=== PATIENT | female | born 1935 | race Asian ===

== ENCOUNTER 2018-05-17 14:04 | Inpatient (IN) | payer OTHER, MEDICAID ==
[~2018-05-17] VITALS: Ht 152.4 cm; Wt 55.8 kg
[2018-05-17 14:04] VITALS: BP_SYST 119
[2018-05-17] MEDS ORDERED: NACL 0.9% 1,000 ML IV ONE (15:15)
[2018-05-17 15:44] LABS: BASOPHILS # (AUTO) 0.1 K/uL (0.0-0.2); BASOPHILS % (AUTO) 0.6 % (0.0-2.0); EOSINOPHILS # (AUTO) 0.2 K/uL (0.0-0.4); EOSINOPHILS % (AUTO) 1.3 % (0.0-4.0); HEMATOCRIT 39.9 % (36-48); HEMOGLOBIN 13.6 g/dL (12.0-16.0); LYMPHOCYTES # (AUTO) 1.6 K/uL (1.0-5.5); LYMPHOCYTES % (AUTO) 11.4 % (20.5-51.5); MEAN CORPUSCULAR HEMOGLOBIN 32 pg (27-31); MEAN CORPUSCULAR HGB CONC 34 % (32-36); MEAN CORPUSCULAR VOLUME 94 fL (79.0-98.0); MONOCYTES # (AUTO) 0.6 K/uL (0.0-1.0); MONOCYTES % (AUTO) 4.5 % (1.7-9.3); NEUTROPHILS # (AUTO) 11.6 K/uL (1.8-7.7); NEUTROPHILS % (AUTO) 82.2 % (40.0-70.0); PLATELET COUNT (AUTO) 297 K/uL (130-430); RED BLOOD CELL COUNT(AUTO) 4.26 MIL/uL (4.2-6.2); RED CELL DISTRIBUTION WIDTH 12.8 % (9.0-15.0); WHITE BLOOD COUNT (AUTO) 14.1 K/uL (4.8-10.8)
[2018-05-17] MEDS ORDERED: LEVOFLOXACIN 500 MG/D5W 100 ML IV ONE (15:45)
[2018-05-17 15:48] LABS: ANION GAP 9 (5-15); CALCIUM 8.6 mg/dL (8.4-11.0); CHLORIDE 99 mmol/L (98-107); CREATININE 1.18 mg/dL (0.55-1.30); GLUCOSE 107 mg/dL (70-99); POTASSIUM 4.1 mmol/L (3.5-5.1); SODIUM SERUM 134 mmol/L (136-145); UREA NITROGEN, BLOOD 31 mg/dL (8-21)
[2018-05-17 15:53] LABS: ALANINE AMINOTRANSFERASE 47 U/L (12-78); ALBUMIN 3.4 g/dL (3.4-4.8); ASPARTATE AMINOTRANSFERASE 28 U/L (10-37); LIPASE 142 U/L (73-393); TOTAL BILIRUBIN 0.7 mg/dL (0.0-1.0)
[2018-05-17] MEDS ORDERED: LIPA1CAP23 PO (17:28)
[2018-05-17] MEDS ORDERED: NOR10 PO (17:28)
[2018-05-17] MEDS ORDERED: LIP10 PO (17:28)
[2018-05-17] MEDS ORDERED: MELO15TA13 PO (17:28)
[2018-05-17 17:45] LABS: BILIRUBIN,URINE NEGATIVE (NEGATIVE); CLARITY/URINE CLEAR (CLEAR); COLOR,URINE YELLOW (YELLOW); GLUCOSE,URINE NEGATIVE (NEGATIVE); KETONES,URINE NEGATIVE (NEGATIVE); LEUKOCYTE ESTERASE ,URINE NEGATIVE (NEGATIVE); NITRITE, URINE NEGATIVE (NEGATIVE); PH,URINE 5.5 (5.0-8.0); PROTEIN URINE NEGATIVE (NEGATIVE); UROBILINOGEN,URINE 0.2 (0.2-1.0)
[2018-05-17 17:47] LABS: BLOOD, URINE TRACE (NEGATIVE)
[2018-05-17 17:51] LABS: BACTERIA,URINE FEW /HPF (None Seen)
[2018-05-17 19:21] VITALS: BP_SYST 105
[2018-05-17 20:40] VITALS: BP_SYST 106
[2018-05-17] MEDS ORDERED: KCL 20 mEq in D5NS 1000 mL 1,000 ML IV SCH (21:15)
[2018-05-17] MEDS ORDERED: MORPHINE 4 MG/ML INJ. SYRINGE ONE (21:17)
[2018-05-17] MEDS ORDERED: ONDANSETRON HCL 4 MG/2 ML VIAL ONE (21:18)
[2018-05-17] MEDS: MORPHINE 4 MG/ML INJ. SYRINGE IVP PRN ×2 (21:27→21:35)
[2018-05-17] MEDS: ONDANSETRON HCL 4 MG/2 ML VIAL IVP PRN ×2 (21:27→21:34)
[2018-05-17] MEDS ORDERED: PIPERACILLIN/TAZOBACTAM 3.375 GM/VIAL (ZOSYN) IV ONE (21:44)
[2018-05-17] MEDS ORDERED: metroNIDAZOLE 500 mg/NS 200 ML IV ONE (21:44)
[2018-05-17] MEDS ORDERED: PIPERACILLIN/TAZO 3.375/DEX-IS 50 ML IV SCH (22:00)
[2018-05-17] MEDS ORDERED: PANTOPRAZOLE SODIUM 40 MG/VIAL (PROTONIX) IVP SCH (22:00)
[2018-05-17] MEDS: KCL 20 mEq in D5/0.45NS 1000mL 1,000 ML IV SCH (22:03)
[2018-05-17] MEDS: metroNIDAZOLE 500 mg/NS 100 ML IV SCH (23:17)
[2018-05-18] VITALS (9 sets, daily range): BP systolic 100–125
[2018-05-18] MEDS ORDERED: IPRATROPIUM/ALBUTEROL SULFATE 3 ML AMPUL.NEB ONE (00:59)
[2018-05-18] MEDS: PIPERACILLIN/TAZO 3.375/DEX-IS 50 ML IV SCH ×3 (05:28→17:20)
[2018-05-18] MEDS: ONDANSETRON HCL 4 MG/2 ML VIAL IVP PRN ×2 (06:04→11:57)
[2018-05-18] MEDS: MORPHINE 2 MG/ML INJ. SYRINGE IVP PRN ×2 (06:04→19:50)
[2018-05-18] MEDS: metroNIDAZOLE 500 mg/NS 100 ML IV SCH ×3 (06:44→22:25)
[2018-05-18 07:19] LABS: BASOPHILS % (AUTO) 0.2 % (0.0-2.0); EOSINOPHILS # (AUTO) 0.2 K/uL (0.0-0.4); EOSINOPHILS % (AUTO) 1.9 % (0.0-4.0); HEMATOCRIT 35.7 % (36-48); HEMOGLOBIN 12.4 g/dL (12.0-16.0); LYMPHOCYTES # (AUTO) 1.5 K/uL (1.0-5.5); LYMPHOCYTES % (AUTO) 14.6 % (20.5-51.5); MEAN CORPUSCULAR HEMOGLOBIN 33 pg (27-31); MEAN CORPUSCULAR HGB CONC 35 % (32-36); MEAN CORPUSCULAR VOLUME 94 fL (79.0-98.0); MONOCYTES # (AUTO) 0.8 K/uL (0.0-1.0); MONOCYTES % (AUTO) 7.8 % (1.7-9.3); NEUTROPHILS # (AUTO) 7.4 K/uL (1.8-7.7); NEUTROPHILS % (AUTO) 75.5 % (40.0-70.0); PLATELET COUNT (AUTO) 263 K/uL (130-430); RED CELL DISTRIBUTION WIDTH 12.7 % (9.0-15.0)
[2018-05-18 07:31] LABS: WHITE BLOOD COUNT (AUTO) 9.9 K/uL (4.8-10.8)
[2018-05-18 07:38] LABS: ANION GAP 7 (5-15); CALCIUM 7.7 mg/dL (8.4-11.0); CHLORIDE 105 mmol/L (98-107); CREATININE 1.05 mg/dL (0.55-1.30); GLUCOSE 113 mg/dL (70-99); SODIUM SERUM 138 mmol/L (136-145); UREA NITROGEN, BLOOD 21 mg/dL (8-21)
[2018-05-18] MEDS: PANTOPRAZOLE SODIUM 40 MG/VIAL (PROTONIX) IVP SCH (08:26)
[2018-05-18] MEDS: KCL 20 mEq in D5/0.45NS 1000mL 1,000 ML IV SCH (17:38)
[2018-05-19] MEDS: PIPERACILLIN/TAZO 3.375/DEX-IS 50 ML IV SCH ×4 (00:39→17:04)
[2018-05-19 01:21] VITALS: BP_SYST 112
[2018-05-19] MEDS: metroNIDAZOLE 500 mg/NS 100 ML IV SCH ×3 (05:43→23:01)
[2018-05-19 08:05] VITALS: BP_SYST 99
[2018-05-19 08:18] LABS: ALANINE AMINOTRANSFERASE 27 U/L (12-78); ALBUMIN 2.5 g/dL (3.4-4.8); ANION GAP 9 (5-15); ASPARTATE AMINOTRANSFERASE 16 U/L (10-37); CALCIUM 7.7 mg/dL (8.4-11.0); CHLORIDE 105 mmol/L (98-107); CREATININE 0.88 mg/dL (0.55-1.30); GLUCOSE 108 mg/dL (70-99); LIPASE 107 U/L (73-393); POTASSIUM 3.4 mmol/L (3.5-5.1); SODIUM SERUM 137 mmol/L (136-145); TOTAL BILIRUBIN 0.9 mg/dL (0.0-1.0); UREA NITROGEN, BLOOD 13 mg/dL (8-21)
[2018-05-19] MEDS: PANTOPRAZOLE SODIUM 40 MG/VIAL (PROTONIX) IVP SCH (08:29)
[2018-05-19] MEDS: MORPHINE 2 MG/ML INJ. SYRINGE IVP PRN ×2 (08:29→20:04)
[2018-05-19 12:11] VITALS: BP_SYST 96
[2018-05-19] MEDS ORDERED: POTASSIUM CHLORIDE 40 MEQ in 0.45% NS 250 ML IV ONE (12:30)
[2018-05-19 16:53] VITALS: BP_SYST 96
[2018-05-19 20:00] VITALS: BP_SYST 107
[2018-05-20] MEDS: PIPERACILLIN/TAZO 3.375/DEX-IS 50 ML IV SCH ×5 (00:06→23:14)
[2018-05-20 01:00] VITALS: BP_SYST 111
[2018-05-20] MEDS: metroNIDAZOLE 500 mg/NS 100 ML IV SCH ×3 (05:41→21:07)
[2018-05-20 06:53] LABS: BASOPHILS % (AUTO) 0.4 % (0.0-2.0); EOSINOPHILS # (AUTO) 0.2 K/uL (0.0-0.4); EOSINOPHILS % (AUTO) 1.8 % (0.0-4.0); HEMATOCRIT 36.5 % (36-48); HEMOGLOBIN 12.6 g/dL (12.0-16.0); LYMPHOCYTES # (AUTO) 1.3 K/uL (1.0-5.5); MEAN CORPUSCULAR HEMOGLOBIN 33 pg (27-31); MEAN CORPUSCULAR HGB CONC 35 % (32-36); MEAN CORPUSCULAR VOLUME 95 fL (79.0-98.0); MONOCYTES # (AUTO) 0.7 K/uL (0.0-1.0); MONOCYTES % (AUTO) 7.3 % (1.7-9.3); NEUTROPHILS # (AUTO) 7.7 K/uL (1.8-7.7); NEUTROPHILS % (AUTO) 77.5 % (40.0-70.0); PLATELET COUNT (AUTO) 252 K/uL (130-430); RED BLOOD CELL COUNT(AUTO) 3.83 MIL/uL (4.2-6.2); RED CELL DISTRIBUTION WIDTH 12.4 % (9.0-15.0); WHITE BLOOD COUNT (AUTO) 9.9 K/uL (4.8-10.8)
[2018-05-20 07:11] LABS: ANION GAP 9 (5-15); CALCIUM 7.7 mg/dL (8.4-11.0); CHLORIDE 105 mmol/L (98-107); CREATININE 0.82 mg/dL (0.55-1.30); GLUCOSE 109 mg/dL (70-99); POTASSIUM 3.4 mmol/L (3.5-5.1); SODIUM SERUM 136 mmol/L (136-145); UREA NITROGEN, BLOOD 11 mg/dL (8-21)
[2018-05-20 07:18] LABS: ALANINE AMINOTRANSFERASE 24 U/L (12-78); ALBUMIN 2.3 g/dL (3.4-4.8); ASPARTATE AMINOTRANSFERASE 19 U/L (10-37); LIPASE 93 U/L (73-393); TOTAL BILIRUBIN 0.8 mg/dL (0.0-1.0)
[2018-05-20 08:00] VITALS: BP_SYST 115
[2018-05-20] MEDS: PANTOPRAZOLE SODIUM 40 MG/VIAL (PROTONIX) IVP SCH (09:08)
[2018-05-20] MEDS: MORPHINE 2 MG/ML INJ. SYRINGE IVP PRN (09:28)
[2018-05-20 12:50] VITALS: BP_SYST 112
[2018-05-20 16:50] VITALS: BP_SYST 108
[2018-05-20] MEDS ORDERED: POTASSIUM CHLORIDE 20 MEQ/PKT PACKET PO ONE (19:00)
[2018-05-20 19:52] VITALS: BP_SYST 122
[2018-05-20] MEDS: ONDANSETRON HCL 4 MG/2 ML VIAL IVP PRN (21:14)
[2018-05-21] VITALS: BP_SYST 106
[2018-05-21] MEDS: PIPERACILLIN/TAZO 3.375/DEX-IS 50 ML IV SCH ×2 (05:56→11:26)
[2018-05-21] MEDS: metroNIDAZOLE 500 mg/NS 100 ML IV SCH ×2 (05:57→13:52)
[2018-05-21 07:02] LABS: BASOPHILS % (AUTO) 0.2 % (0.0-2.0); EOSINOPHILS # (AUTO) 0.1 K/uL (0.0-0.4); EOSINOPHILS % (AUTO) 0.6 % (0.0-4.0); HEMATOCRIT 35.9 % (36-48); HEMOGLOBIN 12.7 g/dL (12.0-16.0); LYMPHOCYTES # (AUTO) 1.3 K/uL (1.0-5.5); MEAN CORPUSCULAR HEMOGLOBIN 33 pg (27-31); MEAN CORPUSCULAR HGB CONC 35 % (32-36); MEAN CORPUSCULAR VOLUME 93 fL (79.0-98.0); MONOCYTES # (AUTO) 0.9 K/uL (0.0-1.0); MONOCYTES % (AUTO) 8.2 % (1.7-9.3); NEUTROPHILS # (AUTO) 8.1 K/uL (1.8-7.7); PLATELET COUNT (AUTO) 287 K/uL (130-430); RED BLOOD CELL COUNT(AUTO) 3.85 MIL/uL (4.2-6.2); RED CELL DISTRIBUTION WIDTH 12.4 % (9.0-15.0); WHITE BLOOD COUNT (AUTO) 10.4 K/uL (4.8-10.8)
[2018-05-21 07:26] LABS: INR 1.1 (0.8-1.2); PROTHROMBIN TIME 10.9 SECS (9.5-12.5)
[2018-05-21 07:30] LABS: ALANINE AMINOTRANSFERASE 21 U/L (12-78); ALBUMIN 2.1 g/dL (3.4-4.8); ANION GAP 10 (5-15); ASPARTATE AMINOTRANSFERASE 16 U/L (10-37); CALCIUM 7.7 mg/dL (8.4-11.0); CHLORIDE 104 mmol/L (98-107); CREATININE 0.76 mg/dL (0.55-1.30); GLUCOSE 103 mg/dL (70-99); POTASSIUM 3.1 mmol/L (3.5-5.1); SODIUM SERUM 136 mmol/L (136-145); TOTAL BILIRUBIN 0.7 mg/dL (0.0-1.0); UREA NITROGEN, BLOOD 12 mg/dL (8-21)
[2018-05-21 08:00] VITALS: BP_SYST 113
[2018-05-21] MEDS ORDERED: SIMETHICONE 40 MG/0.6 ML ML ONE (08:27)
[2018-05-21] MEDS: fentaNYL CITRATE/PF 100 MCG/2 ML AMP ONE ×2 (08:36→09:40)
[2018-05-21] MEDS: MIDAZOLAM HCL 5 MG/5 ML VIAL ONE ×2 (08:36→09:40)
[2018-05-21 11:17] VITALS: BP_SYST 114
[2018-05-21 15:22] VITALS: BP_SYST 116
[2018-05-21] MEDS ORDERED: PRO40 PO (15:22)
[2018-05-21] MEDS ORDERED: SUCR1TAB78 PO (15:22)
[2018-05-21 15:35] VITALS: BP_SYST 116
[2018-05-21] MEDS ORDERED: POTASSIUM CHLORIDE 20 MEQ/PKT PACKET PO ONE (16:00)
[2018-05-21] MEDS ORDERED: PANTOPRAZOLE SODIUM 40 MG/VIAL (PROTONIX) IVP SCH (17:00)
[2018-05-22] MEDS ORDERED: POTASSIUM CHLORIDE 20 MEQ/PKT PACKET PO SCH (09:00)
== END 2018-05-21 16:17 | disposition home health service (06) | DRG 384 ==
LOC: SED 14:04 → SMU 18:23
PROVIDERS: ADMIT Family Medicine; ATTEND Family Medicine
PROC: 0DB68ZX Excision of Stomach, Via Natural or Artificial Opening Endoscopic, Diagnostic (ICD-10-PCS; principal; 2018-05-21 09:00)
DX: K25.9 Gastric ulcer, unspecified as acute or chronic, without hemorrhage or perforation (principal); K80.00 Calculus of gallbladder with acute cholecystitis without obstruction; I10 Essential (primary) hypertension; F03.90 Unspecified dementia, unspecified severity, without behavioral disturbance, psychotic disturbance, mood disturbance, and anxiety; M19.90 Unspecified osteoarthritis, unspecified site; D64.9 Anemia, unspecified; K20.9 Esophagitis, unspecified; K22.2 Esophageal obstruction; K29.80 Duodenitis without bleeding; K44.9 Diaphragmatic hernia without obstruction or gangrene; K82.8 Other specified diseases of gallbladder; E78.00 Pure hypercholesterolemia, unspecified; Z79.899 Other long term (current) drug therapy
CPT/HCPCS: 36415; 43239; 74181; 76700-TC; 78226; 80048; 80053; 81000-TC; 83605; 83690-TC; 83735-TC; 85025; 85610-TC; 85730-TC; 87040-TC; 87081; 88305; 88312; 88313; 93005; A9537; C9113; J1956; J2250; J2270; J2405; J2543; J3010; J3480; J3490; J7040; J7620

== ENCOUNTER 2018-07-10 03:53 | Inpatient (IN) | payer OTHER, MEDICAID ==
[2018-07-10] VITALS (8 sets, daily range): BP systolic 78–124
[~2018-07-10] VITALS: Ht 152.4 cm; Wt 54.0 kg
[~2018-07-10 03:53] MED LIST: LIP10 PO; LIPA1CAP23 PO; PRO40 PO; SUCR1TAB78 PO
[2018-07-10] MEDS ORDERED: NS 500 ML IV ONE (04:00)
[2018-07-10] MEDS ORDERED: NACL 0.9% 1,000 ML IV ONE (04:00)
[2018-07-10] MEDS ORDERED: PANTOPRAZOLE SODIUM 40 MG/VIAL (PROTONIX) IVP ONE (04:15)
[2018-07-10] MEDS ORDERED: ONDANSETRON HCL 4 MG/2 ML VIAL IVP ONE (04:15)
[2018-07-10] MEDS ORDERED: KETOROLAC TROMETHAMINE 30 MG VIAL IVP ONE (04:15)
[2018-07-10 05:16] LABS: ANION GAP 18 (5-15); CALCIUM 9.3 mg/dL (8.4-11.0); CHLORIDE 98 mmol/L (98-107); GLUCOSE 202 mg/dL (70-99); POTASSIUM 4.5 mmol/L (3.5-5.1); SODIUM SERUM 133 mmol/L (136-145); UREA NITROGEN, BLOOD 45 mg/dL (8-21)
[2018-07-10 05:22] LABS: ALANINE AMINOTRANSFERASE 42 U/L (12-78); ALBUMIN 3.7 g/dL (3.4-4.8); ASPARTATE AMINOTRANSFERASE 30 U/L (10-37); INR 0.9 (0.8-1.2); LIPASE 205 U/L (73-393); PROTHROMBIN TIME 9.3 SECS (9.5-12.5); TOTAL BILIRUBIN 0.6 mg/dL (0.0-1.0)
[2018-07-10 05:26] LABS: BASOPHILS # (AUTO) 0.1 K/uL (0.0-0.2); BASOPHILS % (AUTO) 0.5 % (0.0-2.0); EOSINOPHILS % (AUTO) 0.3 % (0.0-4.0); HEMATOCRIT 39.4 % (36-48); HEMOGLOBIN 12.6 g/dL (12.0-16.0); LYMPHOCYTES # (AUTO) 1.8 K/uL (1.0-5.5); LYMPHOCYTES % (AUTO) 13.9 % (20.5-51.5); MEAN CORPUSCULAR HEMOGLOBIN 30 pg (27-31); MEAN CORPUSCULAR HGB CONC 32 % (32-36); MEAN CORPUSCULAR VOLUME 95 fL (79.0-98.0); MONOCYTES # (AUTO) 0.6 K/uL (0.0-1.0); MONOCYTES % (AUTO) 4.4 % (1.7-9.3); NEUTROPHILS # (AUTO) 10.3 K/uL (1.8-7.7); NEUTROPHILS % (AUTO) 80.9 % (40.0-70.0); PLATELET COUNT (AUTO) 379 K/uL (130-430); RED BLOOD CELL COUNT(AUTO) 4.16 MIL/uL (4.2-6.2); RED CELL DISTRIBUTION WIDTH 13.7 % (9.0-15.0); WHITE BLOOD COUNT (AUTO) 12.8 K/uL (4.8-10.8)
[2018-07-10] MEDS ORDERED: LEVOFLOXACIN 500 MG/D5W 100 ML IV ONE (05:45)
[2018-07-10] MEDS ORDERED: NACL 0.9% IV ONE (05:45)
[2018-07-10 06:04] LABS: BILIRUBIN,URINE NEGATIVE (NEGATIVE); BLOOD, URINE NEGATIVE (NEGATIVE); CLARITY/URINE HAZY (CLEAR); COLOR,URINE YELLOW (YELLOW); GLUCOSE,URINE NEGATIVE (NEGATIVE); KETONES,URINE TRACE (NEGATIVE); LEUKOCYTE ESTERASE ,URINE NEGATIVE (NEGATIVE); NITRITE, URINE NEGATIVE (NEGATIVE); PROTEIN URINE NEGATIVE (NEGATIVE); UROBILINOGEN,URINE 0.2 (0.2-1.0)
[2018-07-10 06:13] LABS: BACTERIA,URINE FEW /HPF (None Seen); RBC,URINE 0-3 /HPF (0-3); WBC,URINE 0-3 /HPF (0-3)
[2018-07-10 06:14] LABS: FINE GRANULAR CASTS,URINE 0-10 /LPF (None Seen); URINE AMORPHOUS URATE 2+ /HPF (None Seen)
[2018-07-10] MEDS ORDERED: MORPHINE 2 MG/ML INJ. SYRINGE ONE (09:26)
[2018-07-10] MEDS ORDERED: METOCLOPRAMIDE HCL 10 MG/2 ML VIAL IVP PRN (09:30)
[2018-07-10] MEDS ORDERED: MORPHINE 2 MG/ML INJ. SYRINGE IVP ONE (09:30)
[2018-07-10] MEDS ORDERED: MORPHINE 4 MG/ML INJ. SYRINGE IVP PRN (09:30)
[2018-07-10] MEDS ORDERED: ONDANSETRON HCL 4 MG/2 ML VIAL ONE (10:49)
[2018-07-10] MEDS: D5NS 1,000 ML IV SCH ×2 (11:33→19:06)
[2018-07-10] MEDS: SUCRALFATE 1 GM TABLET PO SCH ×2 (11:33→16:29)
[2018-07-10] MEDS: LIPASE/PROTEASE/AMYLASE 1 CAP PO SCH ×2 (14:05→21:10)
[2018-07-10] MEDS: MORPHINE 2 MG/ML INJ. SYRINGE IVP PRN ×2 (18:05→22:26)
[2018-07-11] VITALS (8 sets, daily range): BP systolic 97–122
[2018-07-11] MEDS: D5NS 1,000 ML IV SCH ×2 (05:19→18:02)
[2018-07-11] MEDS: MORPHINE 2 MG/ML INJ. SYRINGE IVP PRN ×2 (05:21→12:49)
[2018-07-11] MEDS: SUCRALFATE 1 GM TABLET PO SCH ×3 (06:28→17:02)
[2018-07-11] MEDS ORDERED: PANTOPRAZOLE SODIUM 40 MG TAB PO SCH (09:00)
[2018-07-11] MEDS ORDERED: LEVOFLOXACIN 500 MG/D5W 100 ML IV SCH (09:00)
[2018-07-11] MEDS: ATORVASTATIN 10 MG TABLET PO SCH (09:28)
[2018-07-11] MEDS: LEVOFLOXACIN 250 MG/D5W 50 ML IV SCH (09:28)
[2018-07-11] MEDS: LIPASE/PROTEASE/AMYLASE 1 CAP PO SCH ×3 (09:28→20:46)
[2018-07-11] MEDS ORDERED: SODIUM BICARBONATE 8.4% JECT 50 MEQ/50 ML SYRINGE IVP ONE (11:15)
[2018-07-11] MEDS: HYDROcodone/ACETAMIN 5-325 MG TAB (NORCO/ VICODIN) PO PRN ×2 (11:36→18:06)
[2018-07-11 12:02] LABS: BASOPHILS % (AUTO) 0.2 % (0.0-2.0); EOSINOPHILS # (AUTO) 0.1 K/uL (0.0-0.4); EOSINOPHILS % (AUTO) 0.6 % (0.0-4.0); HEMATOCRIT 36.5 % (36-48); HEMOGLOBIN 12.1 g/dL (12.0-16.0); LYMPHOCYTES # (AUTO) 1.6 K/uL (1.0-5.5); LYMPHOCYTES % (AUTO) 14.7 % (20.5-51.5); MEAN CORPUSCULAR HEMOGLOBIN 32 pg (27-31); MEAN CORPUSCULAR HGB CONC 33 % (32-36); MEAN CORPUSCULAR VOLUME 96 fL (79.0-98.0); MONOCYTES # (AUTO) 0.9 K/uL (0.0-1.0); MONOCYTES % (AUTO) 8.2 % (1.7-9.3); NEUTROPHILS # (AUTO) 8.2 K/uL (1.8-7.7); NEUTROPHILS % (AUTO) 76.3 % (40.0-70.0); PLATELET COUNT (AUTO) 309 K/uL (130-430); RED CELL DISTRIBUTION WIDTH 13.5 % (9.0-15.0); WHITE BLOOD COUNT (AUTO) 10.8 K/uL (4.8-10.8)
[2018-07-11 12:03] LABS: ANION GAP 12 (5-15); CALCIUM 7.5 mg/dL (8.4-11.0); CHLORIDE 107 mmol/L (98-107); CREATININE 1.84 mg/dL (0.55-1.30); GLUCOSE 157 mg/dL (70-99); POTASSIUM 4.9 mmol/L (3.5-5.1); SODIUM SERUM 135 mmol/L (136-145); UREA NITROGEN, BLOOD 50 mg/dL (8-21)
[2018-07-11 12:11] LABS: ALANINE AMINOTRANSFERASE 46 U/L (12-78); ALBUMIN 2.7 g/dL (3.4-4.8); ASPARTATE AMINOTRANSFERASE 32 U/L (10-37); TOTAL BILIRUBIN 0.4 mg/dL (0.0-1.0)
[2018-07-11] MEDS ORDERED: FUROSEMIDE 20 MG/2 ML VIAL IVP ONE (15:00)
[2018-07-11] MEDS ORDERED: IPRATROPIUM/ALBUTEROL SULFATE 3 ML AMPUL.NEB INH PRN (15:15)
[2018-07-11] MEDS: IPRATROPIUM/ALBUTEROL SULFATE 3 ML AMPUL.NEB INH SCH (19:17)
[2018-07-11] MEDS ORDERED: HEPARIN SODIUM,PORCINE 5000 UNITS/ML VIAL SUBCUT SCH (21:00)
[2018-07-11] MEDS: ONDANSETRON HCL 4 MG/2 ML VIAL IVP PRN (21:20)
[2018-07-12] VITALS (19 sets, daily range): BP systolic 112–139
[2018-07-12] MEDS: IPRATROPIUM/ALBUTEROL SULFATE 3 ML AMPUL.NEB INH SCH ×4 (00:55→19:13)
[2018-07-12] MEDS: MORPHINE 2 MG/ML INJ. SYRINGE IVP PRN ×4 (02:31→21:39)
[2018-07-12] MEDS ORDERED: DOPamine PREMIX 250 ML IV PRN (05:15)
[2018-07-12] MEDS: SUCRALFATE 1 GM TABLET PO SCH ×3 (07:00→16:38)
[2018-07-12 07:14] LABS: BASOPHILS % (AUTO) 0.3 % (0.0-2.0); EOSINOPHILS # (AUTO) 0.2 K/uL (0.0-0.4); EOSINOPHILS % (AUTO) 1.7 % (0.0-4.0); HEMATOCRIT 32.4 % (36-48); HEMOGLOBIN 10.6 g/dL (12.0-16.0); LYMPHOCYTES # (AUTO) 1.4 K/uL (1.0-5.5); LYMPHOCYTES % (AUTO) 15.4 % (20.5-51.5); MEAN CORPUSCULAR HEMOGLOBIN 31 pg (27-31); MEAN CORPUSCULAR HGB CONC 33 % (32-36); MEAN CORPUSCULAR VOLUME 95 fL (79.0-98.0); MONOCYTES # (AUTO) 0.7 K/uL (0.0-1.0); MONOCYTES % (AUTO) 7.6 % (1.7-9.3); NEUTROPHILS # (AUTO) 6.6 K/uL (1.8-7.7); PLATELET COUNT (AUTO) 252 K/uL (130-430); RED CELL DISTRIBUTION WIDTH 13.4 % (9.0-15.0); WHITE BLOOD COUNT (AUTO) 8.9 K/uL (4.8-10.8)
[2018-07-12 07:15] LABS: ALANINE AMINOTRANSFERASE 44 U/L (12-78); ALBUMIN 2.6 g/dL (3.4-4.8); ANION GAP 10 (5-15); ASPARTATE AMINOTRANSFERASE 27 U/L (10-37); CHLORIDE 107 mmol/L (98-107); CREATININE 1.21 mg/dL (0.55-1.30); GLUCOSE 140 mg/dL (70-99); POTASSIUM 3.4 mmol/L (3.5-5.1); SODIUM SERUM 137 mmol/L (136-145); TOTAL BILIRUBIN 0.5 mg/dL (0.0-1.0); UREA NITROGEN, BLOOD 32 mg/dL (8-21)
[2018-07-12] MEDS: ONDANSETRON HCL 4 MG/2 ML VIAL IVP PRN ×2 (07:22→21:38)
[2018-07-12] MEDS: ATORVASTATIN 10 MG TABLET PO SCH (07:53)
[2018-07-12] MEDS: PANTOPRAZOLE SODIUM 40 MG TAB PO SCH ×2 (07:53→20:40)
[2018-07-12] MEDS: LIPASE/PROTEASE/AMYLASE 1 CAP PO SCH ×3 (07:53→20:40)
[2018-07-12 08:13] LABS: CALCIUM 7.8 mg/dL (8.4-11.0)
[2018-07-12] MEDS ORDERED: POTASSIUM CHLORIDE 40 MEQ in NS 250 ML IV ONE (09:30)
[2018-07-12] MEDS: LEVOFLOXACIN 250 MG/D5W 50 ML IV SCH (09:46)
[2018-07-12] MEDS: D5NS 1,000 ML IV SCH ×2 (09:47→20:40)
[2018-07-12 12:14] LABS: PROTHROMBIN TIME 9.9 SECS (9.5-12.5)
[2018-07-12] MEDS ORDERED: LIDOCAINE/EPI 1% 1:100000 20 ML VIAL INJ ONE (13:55)
[2018-07-12] MEDS ORDERED: NS 1000 ML IV.SOLN IV ONE (13:55)
[2018-07-12] MEDS ORDERED: LR 1,000 ML IV.SOLN IV ONE (13:55)
[2018-07-12] MEDS ORDERED: MIDAZOLAM HCL 5 MG/5 ML VIAL IVP ONE (13:55)
[2018-07-12] MEDS ORDERED: PROPOFOL 200MG/ 20ML VIAL (DIPRIVAN) IV ONE (13:55)
[2018-07-12] MEDS ORDERED: ONDANSETRON HCL 4 MG/2 ML VIAL IVP PRN (14:45)
[2018-07-12] MEDS ORDERED: fentaNYL CITRATE/PF 100 MCG/2 ML AMP IVP PRN ×2 (14:45)
[2018-07-13] VITALS (21 sets, daily range): BP systolic 101–146
[2018-07-13] MEDS: IPRATROPIUM/ALBUTEROL SULFATE 3 ML AMPUL.NEB INH SCH ×4 (01:27→19:54)
[2018-07-13] MEDS: SUCRALFATE 1 GM TABLET PO SCH ×3 (06:18→16:46)
[2018-07-13 06:33] LABS: ANION GAP 7 (5-15); CALCIUM 7.7 mg/dL (8.4-11.0); CHLORIDE 108 mmol/L (98-107); CREATININE 0.81 mg/dL (0.55-1.30); GLUCOSE 155 mg/dL (70-99); SODIUM SERUM 140 mmol/L (136-145); UREA NITROGEN, BLOOD 10 mg/dL (8-21)
[2018-07-13 06:38] LABS: BASOPHILS % (AUTO) 0.3 % (0.0-2.0); EOSINOPHILS % (AUTO) 0.5 % (0.0-4.0); HEMATOCRIT 31.1 % (36-48); HEMOGLOBIN 10.3 g/dL (12.0-16.0); LYMPHOCYTES # (AUTO) 0.7 K/uL (1.0-5.5); LYMPHOCYTES % (AUTO) 8.2 % (20.5-51.5); MEAN CORPUSCULAR HEMOGLOBIN 32 pg (27-31); MEAN CORPUSCULAR HGB CONC 33 % (32-36); MEAN CORPUSCULAR VOLUME 96 fL (79.0-98.0); MONOCYTES # (AUTO) 0.6 K/uL (0.0-1.0); MONOCYTES % (AUTO) 6.9 % (1.7-9.3); NEUTROPHILS # (AUTO) 7.8 K/uL (1.8-7.7); NEUTROPHILS % (AUTO) 84.1 % (40.0-70.0); PLATELET COUNT (AUTO) 215 K/uL (130-430); RED BLOOD CELL COUNT(AUTO) 3.23 MIL/uL (4.2-6.2); WHITE BLOOD COUNT (AUTO) 9.1 K/uL (4.8-10.8)
[2018-07-13 06:59] LABS: POTASSIUM 2.9 mmol/L (3.5-5.1)
[2018-07-13] MEDS ORDERED: POTASSIUM CHLORIDE 20 MEQ TAB.PRT.SR PO ONE ×2 (07:15→16:30)
[2018-07-13] MEDS: LEVOFLOXACIN 250 MG/D5W 50 ML IV SCH (08:16)
[2018-07-13] MEDS: ATORVASTATIN 10 MG TABLET PO SCH (08:17)
[2018-07-13] MEDS: LIPASE/PROTEASE/AMYLASE 1 CAP PO SCH ×3 (08:17→21:31)
[2018-07-13] MEDS: PANTOPRAZOLE SODIUM 40 MG TAB PO SCH ×2 (08:17→21:31)
[2018-07-13] MEDS: MORPHINE 2 MG/ML INJ. SYRINGE IVP PRN ×2 (14:33→21:28)
[2018-07-13] MEDS ORDERED: FUROSEMIDE 20 MG/2 ML VIAL IVP ONE (16:30)
[2018-07-13] MEDS ORDERED: 0.45% NACL 1,000 ML IV SCH (16:30)
[2018-07-14] MEDS: IPRATROPIUM/ALBUTEROL SULFATE 3 ML AMPUL.NEB INH SCH ×4 (00:10→19:32)
[2018-07-14 02:00] VITALS: BP_SYST 109
[2018-07-14] MEDS: SUCRALFATE 1 GM TABLET PO SCH ×3 (05:37→16:35)
[2018-07-14] MEDS: MORPHINE 2 MG/ML INJ. SYRINGE IVP PRN (05:40)
[2018-07-14 07:15] LABS: BASOPHILS % (AUTO) 0.2 % (0.0-2.0); EOSINOPHILS % (AUTO) 0.4 % (0.0-4.0); HEMATOCRIT 30.4 % (36-48); HEMOGLOBIN 10.5 g/dL (12.0-16.0); LYMPHOCYTES % (AUTO) 8.3 % (20.5-51.5); MEAN CORPUSCULAR HEMOGLOBIN 33 pg (27-31); MEAN CORPUSCULAR HGB CONC 35 % (32-36); MEAN CORPUSCULAR VOLUME 95 fL (79.0-98.0); MONOCYTES # (AUTO) 0.8 K/uL (0.0-1.0); NEUTROPHILS # (AUTO) 10.2 K/uL (1.8-7.7); NEUTROPHILS % (AUTO) 84.1 % (40.0-70.0); PLATELET COUNT (AUTO) 185 K/uL (130-430); RED BLOOD CELL COUNT(AUTO) 3.21 MIL/uL (4.2-6.2); RED CELL DISTRIBUTION WIDTH 12.9 % (9.0-15.0)
[2018-07-14 07:21] VITALS: BP_SYST 109
[2018-07-14 07:28] LABS: ALANINE AMINOTRANSFERASE 21 U/L (12-78); AMYLASE 31 U/L (0-100); ANION GAP 8 (5-15); CALCIUM 7.7 mg/dL (8.4-11.0); CHLORIDE 103 mmol/L (98-107); CREATININE 0.87 mg/dL (0.55-1.30); GLUCOSE 114 mg/dL (70-99); LIPASE 84 U/L (73-393); POTASSIUM 3.3 mmol/L (3.5-5.1); SODIUM SERUM 137 mmol/L (136-145); TOTAL BILIRUBIN 1.4 mg/dL (0.0-1.0); UREA NITROGEN, BLOOD 7 mg/dL (8-21)
[2018-07-14 07:34] LABS: ASPARTATE AMINOTRANSFERASE 13 U/L (10-37)
[2018-07-14 08:00] VITALS: BP_SYST 103
[2018-07-14] MEDS: PANTOPRAZOLE SODIUM 40 MG TAB PO SCH ×2 (08:52→20:05)
[2018-07-14] MEDS: LIPASE/PROTEASE/AMYLASE 1 CAP PO SCH ×3 (08:52→20:06)
[2018-07-14] MEDS: LEVOFLOXACIN 250 MG/D5W 50 ML IV SCH (08:52)
[2018-07-14] MEDS: ATORVASTATIN 10 MG TABLET PO SCH (08:52)
[2018-07-14] MEDS ORDERED: POTASSIUM CHLORIDE 20 MEQ TAB.PRT.SR PO ONE ×2 (10:00→12:45)
[2018-07-14] MEDS: HYDROcodone/ACETAMIN 5-325 MG TAB (NORCO/ VICODIN) PO PRN ×2 (10:01→20:05)
[2018-07-14] MEDS: 0.45% NACL 1,000 ML IV SCH ×2 (10:30→16:35)
[2018-07-14 11:20] VITALS: BP_SYST 111
[2018-07-14] MEDS ORDERED: methylPREDNISolone SOD SUCC 40 MG/ML VIAL IVP ONE (14:15)
[2018-07-14 15:20] VITALS: BP_SYST 123
[2018-07-14 20:00] VITALS: BP_SYST 137
[2018-07-15 00:35] VITALS: BP_SYST 98
[2018-07-15] MEDS: IPRATROPIUM/ALBUTEROL SULFATE 3 ML AMPUL.NEB INH SCH ×4 (01:05→19:24)
[2018-07-15] MEDS: SUCRALFATE 1 GM TABLET PO SCH ×3 (06:42→16:07)
[2018-07-15 07:14] LABS: BASOPHILS # (AUTO) 0.1 K/uL (0.0-0.2); BASOPHILS % (AUTO) 0.7 % (0.0-2.0); EOSINOPHILS % (AUTO) 0.1 % (0.0-4.0); HEMOGLOBIN 11.6 g/dL (12.0-16.0); LYMPHOCYTES # (AUTO) 0.4 K/uL (1.0-5.5); LYMPHOCYTES % (AUTO) 2.9 % (20.5-51.5); MEAN CORPUSCULAR HEMOGLOBIN 32 pg (27-31); MEAN CORPUSCULAR HGB CONC 33 % (32-36); MEAN CORPUSCULAR VOLUME 95 fL (79.0-98.0); MONOCYTES # (AUTO) 0.4 K/uL (0.0-1.0); MONOCYTES % (AUTO) 3.2 % (1.7-9.3); NEUTROPHILS % (AUTO) 93.1 % (40.0-70.0); PLATELET COUNT (AUTO) 207 K/uL (130-430); RED BLOOD CELL COUNT(AUTO) 3.68 MIL/uL (4.2-6.2); RED CELL DISTRIBUTION WIDTH 13.1 % (9.0-15.0); WHITE BLOOD COUNT (AUTO) 12.9 K/uL (4.8-10.8)
[2018-07-15 07:57] LABS: ALANINE AMINOTRANSFERASE 19 U/L (12-78); ALBUMIN 1.9 g/dL (3.4-4.8); ANION GAP 10 (5-15); ASPARTATE AMINOTRANSFERASE 18 U/L (10-37); CALCIUM 8.7 mg/dL (8.4-11.0); CHLORIDE 101 mmol/L (98-107); CREATININE 0.89 mg/dL (0.55-1.30); GLUCOSE 150 mg/dL (70-99); SODIUM SERUM 134 mmol/L (136-145); UREA NITROGEN, BLOOD 14 mg/dL (8-21)
[2018-07-15 08:00] VITALS: BP_SYST 123
[2018-07-15] MEDS: PANTOPRAZOLE SODIUM 40 MG TAB PO SCH ×2 (09:24→20:54)
[2018-07-15] MEDS: ATORVASTATIN 10 MG TABLET PO SCH (09:24)
[2018-07-15] MEDS: LEVOFLOXACIN 250 MG/D5W 50 ML IV SCH (09:24)
[2018-07-15] MEDS: LIPASE/PROTEASE/AMYLASE 1 CAP PO SCH ×4 (09:24→20:54)
[2018-07-15] MEDS: methylPREDNISolone SOD SUCC 40 MG/ML VIAL IVP SCH (09:25)
[2018-07-15 12:36] VITALS: BP_SYST 102
[2018-07-15] MEDS: HYDROcodone/ACETAMIN 5-325 MG TAB (NORCO/ VICODIN) PO PRN ×3 (14:29→22:19)
[2018-07-15 16:33] VITALS: BP_SYST 110
[2018-07-15 19:30] VITALS: BP_SYST 119
[2018-07-16] VITALS: BP_SYST 122
[2018-07-16] MEDS: IPRATROPIUM/ALBUTEROL SULFATE 3 ML AMPUL.NEB INH SCH ×3 (01:07→14:28)
[2018-07-16] MEDS: 0.45% NACL 1,000 ML IV SCH (05:48)
[2018-07-16] MEDS: SUCRALFATE 1 GM TABLET PO SCH ×2 (06:15→11:18)
[2018-07-16 08:00] VITALS: BP_SYST 122
[2018-07-16] MEDS: PANTOPRAZOLE SODIUM 40 MG TAB PO SCH (09:44)
[2018-07-16] MEDS: ATORVASTATIN 10 MG TABLET PO SCH (09:44)
[2018-07-16] MEDS: methylPREDNISolone SOD SUCC 40 MG/ML VIAL IVP SCH (09:44)
[2018-07-16] MEDS: LEVOFLOXACIN 250 MG/D5W 50 ML IV SCH (09:44)
[2018-07-16] MEDS: LIPASE/PROTEASE/AMYLASE 1 CAP PO SCH (09:44)
[2018-07-16 11:43] VITALS: BP_SYST 128
[2018-07-16 12:15] VITALS: BP_SYST 106
== END 2018-07-16 14:55 | disposition home health service (06) | DRG 242 ==
LOC: SED 03:53 → STU 06:30 → SIC 07-12 05:21 → STU 07-13 17:50
PROVIDERS: ADMIT Internal Medicine Hospice and Palliative Medicine; ATTEND Internal Medicine Hospice and Palliative Medicine
PROC: 02HV33Z Insertion of Infusion Device into Superior Vena Cava, Percutaneous Approach (ICD-10-PCS; 2018-07-10)
PROC: B548ZZA Ultrasonography of Superior Vena Cava, Guidance (ICD-10-PCS; 2018-07-10)
PROC: 02H63JZ Insertion of Pacemaker Lead into Right Atrium, Percutaneous Approach (ICD-10-PCS; 2018-07-12)
PROC: 02HK3JZ Insertion of Pacemaker Lead into Right Ventricle, Percutaneous Approach (ICD-10-PCS; 2018-07-12)
PROC: 0JH606Z Insertion of Pacemaker, Dual Chamber into Chest Subcutaneous Tissue and Fascia, Open Approach (ICD-10-PCS; principal; 2018-07-12 14:00)
DX: I49.5 Sick sinus syndrome (principal); E43 Unspecified severe protein-calorie malnutrition; K85.90 Acute pancreatitis without necrosis or infection, unspecified; E87.2 Acidosis; N17.9 Acute kidney failure, unspecified; E78.5 Hyperlipidemia, unspecified; M81.0 Age-related osteoporosis without current pathological fracture; F03.90 Unspecified dementia, unspecified severity, without behavioral disturbance, psychotic disturbance, mood disturbance, and anxiety; K57.90 Diverticulosis of intestine, part unspecified, without perforation or abscess without bleeding; I48.0 Paroxysmal atrial fibrillation; I50.9 Heart failure, unspecified; K21.9 Gastro-esophageal reflux disease without esophagitis; E78.00 Pure hypercholesterolemia, unspecified; K29.00 Acute gastritis without bleeding; I11.0 Hypertensive heart disease with heart failure; M13.0 Polyarthritis, unspecified; D64.9 Anemia, unspecified; K82.8 Other specified diseases of gallbladder; N28.1 Cyst of kidney, acquired; Z90.710 Acquired absence of both cervix and uterus; Z90.49 Acquired absence of other specified parts of digestive tract; Z87.11 Personal history of peptic ulcer disease; Z79.899 Other long term (current) drug therapy; Z68.23 Body mass index [BMI] 23.0-23.9, adult
CPT/HCPCS: 36415; 36600; 71045; 73560-TC; 76000; 78580-TC; 80048; 80053; 81000-TC; 82009-TC; 82150-TC; 82803-TC; 83605; 83690-TC; 83735-TC; 83880; 84132-TC; 84484; 84550-TC; 85025; 85610-TC; 85651-TC; 85730-TC; 86431; 87040-TC; 87081; 87086; 93005; 93306; 93970; 94640; 94760; 97110-GP; 97116-GP; 97163; 97530-GP; 99291; A9540; C1751; C1785; C1894; C1898; C9113; J1030; J1265; J1644; J1885; J1940; J1956; J2250; J2270; J2405; J2704; J3480; J7030; J7040; J7042; J7050; J7120; J7620